=== PATIENT | female | born 1950 | race Caucasian/White ===

== ENCOUNTER 2017-05-20 13:30 | Day surgery (SDC) | payer MEDICARE, BC ==
[2017-05-20] MEDS ORDERED: PROPOFOL 60 ML (15:02)
[2017-05-20] MEDS ORDERED: LIDOCAINE 2% (SDV) 5 ML INJ (15:02)
== END 2017-05-20 18:42 | disposition home or self-care (01) ==
LOC: GIL 13:30
DX: K92.1 Melena (principal); D12.5 Benign neoplasm of sigmoid colon; K21.9 Gastro-esophageal reflux disease without esophagitis; K29.60 Other gastritis without bleeding; K57.90 Diverticulosis of intestine, part unspecified, without perforation or abscess without bleeding; K64.8 Other hemorrhoids; I10 Essential (primary) hypertension; E78.5 Hyperlipidemia, unspecified; E11.9 Type 2 diabetes mellitus without complications
CPT/HCPCS: 43239; 82962; 87081; 88305